=== PATIENT | male | born 1960 | race Caucasian/White ===

== ENCOUNTER 2017-06-22 17:48 | Inpatient (IN) | payer MEDICARE, MEDICAID ==
[~2017-06-22] VITALS: Ht 177.8 cm; Wt 75.3 kg
[2017-06-22] MEDS ORDERED: LISI-661 PO (17:59)
[2017-06-22] MEDS ORDERED: PARO10TA89 PO (17:59)
[2017-06-22] MEDS ORDERED: GABA-529 PO (17:59)
[2017-06-22 18:50] LABS: BASOPHILS % (AUTO) 0.9 % (0.0-2.0); EOSINOPHILS % (AUTO) 0.4 % (1.0-6.0); HEMATOCRIT 33.8 % (41-53); HEMOGLOBIN 11.6 g/dL (13.5-17.5); LYMPHOCYTES # (AUTO) 2.4 K/uL (1.0-4.8); LYMPHOCYTES % (AUTO) 22.4 % (22.0-44.0); MEAN CORPUSCULAR HEMOGLOBIN 29.6 pg (26.0-34.0); MEAN CORPUSCULAR HGB CONC 34.4 G/dL (31.0-37.0); MEAN CORPUSCULAR VOLUME 86 fL (80-100); MONOCYTES # (AUTO) 0.8 K/uL (0.1-1.0); MONOCYTES % (AUTO) 7.7 % (2.0-9.0); NEUTROPHILS # (AUTO) 7.3 K/uL (1.8-7.7); NEUTROPHILS % (AUTO) 68.6 % (40.0-70.0); PLATELET COUNT (AUTO) 316 K/uL (150-450); RED BLOOD CELL COUNT(AUTO) 3.92 MIL/uL (4.50-5.90); RED CELL DISTRIBUTION WIDTH 14.7 % (11.5-14.5)
[2017-06-22 19:05] LABS: ANION GAP 12 mmol/L (8-16); CALCIUM, TOTAL 8.4 mg/dL (8.8-10.5); CARBON DIOXIDE 23 mmol/L (22-29); CHLORIDE 106 mmol/L (98-107); CREATININE 1.01 mg/dL (0.60-1.30); GLOMERULAR FILTR. RATE CALC > 60 mL/min (>60); GLUCOSE,RANDOM 108 mg/dL (70-110); POTASSIUM 3.3 mmol/L (3.5-5.1); SODIUM SERUM 141 mmol/L (136-145); UREA NITROGEN, BLOOD 10 mg/dL (7-18)
[2017-06-22 19:11] LABS: ALANINE AMINOTRANSFERASE 19 U/L (12-78); ALBUMIN 3.2 g/dL (3.4-5.0); ALKALINE PHOSPHATASE 108 U/L (46-116); ASPARTATE AMINOTRANSFERASE 17 U/L (15-37); BILIRUBIN,TOTAL 0.4 mg/dL (0.1-1.0); TOTAL PROTEIN, SERUM 6.7 g/dL (6.4-8.2)
[2017-06-22] MEDS ORDERED: CLOZ100 PO ×2 (19:43)
[2017-06-22] MEDS ORDERED: OMEP20 PO (19:43)
[2017-06-22] MEDS ORDERED: CloZAPine 100 MG TABLET PO ONE (19:45)
[2017-06-22] MEDS ORDERED: LORazepam 2 MG TABLET PO PRN (20:45)
[2017-06-22] MEDS ORDERED: HALOPERIDOL 5 MG TABLET PO PRN (20:45)
[2017-06-22] MEDS ORDERED: ZOLPIDEM TARTRATE 10 MG TABLET PO PRN (20:45)
[2017-06-23 01:20] VITALS: BP 148/89
[2017-06-23 01:28] LABS: CHOL/HDL RATIO 3.2 (4.2-7.3); CHOLESTEROL 136 mg/dL (131-200); FREE T4 (FREE THYROXINE) 1.57 ng/dL (0.76-1.46); HDL CHOLESTEROL 43 mg/dL (40-60); LDL CHOL (CALC.) 67 mg/dL (0-130); THYROID STIMULATING HORMONE 1.95 uIU/mL (0.36-3.74); TRIGLYCERIDES 129 mg/dL (15-150)
[2017-06-23] MEDS ORDERED: PNEUMOCOCCAL VACCINE POLYVALENT 0.5 ML VIAL [PPSV23] IM ONE (03:45)
[2017-06-23] MEDS ORDERED: PETROLATUM,WHITE 71 GM JELLY TP PRN (07:30)
[2017-06-23] MEDS ORDERED: MAG HYDROX/AL HYDROX/SIMETH ES 30 ML SUSPENSION UDCUP PO PRN (07:30)
[2017-06-23] MEDS ORDERED: BACITRACIN 28.4 GM OINTMENT TP PRN (07:30)
[2017-06-23] MEDS ORDERED: CloNIDine HCL 0.1 MG TABLET PO PRN (07:30)
[2017-06-23] MEDS ORDERED: BENZOCAINE/MENTHOL LOZENGE MM PRN (07:30)
[2017-06-23] MEDS ORDERED: ONDANSETRON HCL 4 MG TABLET PO PRN (07:30)
[2017-06-23] MEDS ORDERED: POTASSIUM CHLORIDE 20 MEQ ER TABLET PO ONE (07:30)
[2017-06-23] MEDS ORDERED: MAGNESIUM HYDROXIDE SUSPENSION 30 ML UDCUP PO PRN (07:30)
[2017-06-23] MEDS ORDERED: LOPERAMIDE HCL 2 MG CAPSULE PO PRN (07:30)
[2017-06-23] MEDS ORDERED: ACETAMINOPHEN 325 MG TABLET PO PRN (07:30)
[2017-06-23] MEDS: LISINOPRIL 10 MG TABLET PO SCH (08:23)
[2017-06-23] MEDS: OMEPRAZOLE 20 MG CAPSULE PO SCH (08:23)
[2017-06-23] MEDS: DOCUSATE SODIUM 100 MG CAPSULE PO SCH (08:23)
[2017-06-23] MEDS: GABAPENTIN 100 MG CAPSULE PO SCH ×4 (08:24→20:52)
[2017-06-23 11:00] VITALS: BP 133/79
[2017-06-23] MEDS: PARoxetine HCL 10 MG TABLET PO SCH (12:05)
[2017-06-23 17:00] VITALS: BP 155/82
[2017-06-24] MEDS: OMEPRAZOLE 20 MG CAPSULE PO SCH (08:11)
[2017-06-24] MEDS: GABAPENTIN 100 MG CAPSULE PO SCH ×4 (08:11→20:34)
[2017-06-24] MEDS: PARoxetine HCL 10 MG TABLET PO SCH (08:11)
[2017-06-24] MEDS: DOCUSATE SODIUM 100 MG CAPSULE PO SCH (08:11)
[2017-06-24] MEDS: LISINOPRIL 10 MG TABLET PO SCH (08:12)
[2017-06-24 09:25] VITALS: BP 152/81
[2017-06-24 10:45] VITALS: BP 137/91
[2017-06-24] MEDS: ALBUTEROL SULFATE HFA 90 MCG/PUFF 8 GM INHALER IH PRN (14:37)
[2017-06-24] MEDS: IBUPROFEN 600 MG TABLET PO PRN (14:37)
[2017-06-24] MEDS ORDERED: POTASSIUM CHLORIDE 20 MEQ ER TABLET PO ONE (17:00)
[2017-06-24 17:23] VITALS: BP 144/76
[2017-06-25 07:29] LABS: ANION GAP 9 mmol/L (8-16); CALCIUM, TOTAL 8.3 mg/dL (8.8-10.5); CARBON DIOXIDE 24 mmol/L (22-29); CHLORIDE 109 mmol/L (98-107); CREATININE 0.91 mg/dL (0.60-1.30); GLOMERULAR FILTR. RATE CALC > 60 mL/min (>60); GLUCOSE,RANDOM 100 mg/dL (70-110); SODIUM SERUM 142 mmol/L (136-145); UREA NITROGEN, BLOOD 11 mg/dL (7-18)
[2017-06-25] MEDS: GABAPENTIN 100 MG CAPSULE PO SCH ×4 (08:24→20:29)
[2017-06-25] MEDS: DOCUSATE SODIUM 100 MG CAPSULE PO SCH (08:24)
[2017-06-25] MEDS: OMEPRAZOLE 20 MG CAPSULE PO SCH (08:25)
[2017-06-25] MEDS: LISINOPRIL 10 MG TABLET PO SCH (08:25)
[2017-06-25] MEDS: PARoxetine HCL 10 MG TABLET PO SCH (08:25)
[2017-06-25 08:30] VITALS: BP 137/77
[2017-06-25] MEDS: ALBUTEROL SULFATE HFA 90 MCG/PUFF 8 GM INHALER IH PRN ×2 (12:36→20:37)
[2017-06-25] MEDS ORDERED: LORazepam 2 MG TABLET PO PRN (15:15)
[2017-06-25] MEDS ORDERED: HALOPERIDOL 5 MG TABLET PO PRN (15:15)
[2017-06-25 16:35] VITALS: BP 148/83
[2017-06-25] MEDS: ZOLPIDEM TARTRATE 10 MG TABLET PO PRN (20:29)
[2017-06-26 08:01] VITALS: BP 141/75
[2017-06-26] MEDS: OMEPRAZOLE 20 MG CAPSULE PO SCH (08:35)
[2017-06-26] MEDS: PARoxetine HCL 10 MG TABLET PO SCH (08:35)
[2017-06-26] MEDS: DOCUSATE SODIUM 100 MG CAPSULE PO SCH (08:35)
[2017-06-26] MEDS: GABAPENTIN 100 MG CAPSULE PO SCH ×4 (08:35→19:57)
[2017-06-26] MEDS: LISINOPRIL 10 MG TABLET PO SCH (08:36)
[2017-06-26] MEDS: ALBUTEROL SULFATE HFA 90 MCG/PUFF 8 GM INHALER IH PRN ×2 (09:06→16:19)
[2017-06-26 17:21] VITALS: BP 144/82
[2017-06-26] MEDS: ZOLPIDEM TARTRATE 10 MG TABLET PO PRN (20:23)
[2017-06-27 06:40] LABS: BASOPHILS % (AUTO) 1.7 % (0.0-2.0); EOSINOPHILS % (AUTO) 1.6 % (1.0-6.0); HEMATOCRIT 32.7 % (41-53); HEMOGLOBIN 11.4 g/dL (13.5-17.5); LYMPHOCYTES # (AUTO) 2.1 K/uL (1.0-4.8); LYMPHOCYTES % (AUTO) 37.5 % (22.0-44.0); MEAN CORPUSCULAR HEMOGLOBIN 29.9 pg (26.0-34.0); MEAN CORPUSCULAR HGB CONC 34.8 G/dL (31.0-37.0); MEAN CORPUSCULAR VOLUME 86 fL (80-100); MONOCYTES # (AUTO) 0.6 K/uL (0.1-1.0); NEUTROPHILS # (AUTO) 2.7 K/uL (1.8-7.7); NEUTROPHILS % (AUTO) 48.2 % (40.0-70.0); PLATELET COUNT (AUTO) 234 K/uL (150-450); RED BLOOD CELL COUNT(AUTO) 3.81 MIL/uL (4.50-5.90); RED CELL DISTRIBUTION WIDTH 14.8 % (11.5-14.5)
[2017-06-27] MEDS: DOCUSATE SODIUM 100 MG CAPSULE PO SCH (08:33)
[2017-06-27] MEDS: PARoxetine HCL 10 MG TABLET PO SCH (08:33)
[2017-06-27] MEDS: GABAPENTIN 100 MG CAPSULE PO SCH ×4 (08:33→20:08)
[2017-06-27] MEDS: OMEPRAZOLE 20 MG CAPSULE PO SCH (08:33)
[2017-06-27] MEDS ORDERED: LISINOPRIL 20 MG TABLET PO SCH (09:00)
[2017-06-27] MEDS ORDERED: CloZAPine 25 MG TABLET PO SCH (09:00)
[2017-06-27 10:35] VITALS: BP 108/59
[2017-06-27 17:04] VITALS: BP 135/75
[2017-06-27] MEDS: ALBUTEROL SULFATE HFA 90 MCG/PUFF 8 GM INHALER IH PRN (20:12)
[2017-06-27] MEDS: ZOLPIDEM TARTRATE 10 MG TABLET PO PRN (20:50)
[2017-06-28 08:15] VITALS: BP 102/64
[2017-06-28] MEDS: PARoxetine HCL 10 MG TABLET PO SCH (08:31)
[2017-06-28] MEDS: LISINOPRIL 10 MG TABLET PO SCH (08:31)
[2017-06-28] MEDS: DOCUSATE SODIUM 100 MG CAPSULE PO SCH (08:31)
[2017-06-28] MEDS: GABAPENTIN 100 MG CAPSULE PO SCH ×4 (08:31→20:33)
[2017-06-28] MEDS: OMEPRAZOLE 20 MG CAPSULE PO SCH (08:31)
[2017-06-28] MEDS ORDERED: CloZAPine 25 MG TABLET PO SCH ×2 (09:00→21:00)
[2017-06-28 16:42] VITALS: BP 116/81
[2017-06-29] MEDS: GABAPENTIN 100 MG CAPSULE PO SCH ×4 (08:23→20:17)
[2017-06-29] MEDS: PARoxetine HCL 10 MG TABLET PO SCH (08:23)
[2017-06-29] MEDS: DOCUSATE SODIUM 100 MG CAPSULE PO SCH (08:24)
[2017-06-29] MEDS: OMEPRAZOLE 20 MG CAPSULE PO SCH (08:24)
[2017-06-29] MEDS: CHOLECALCIFEROL (VIT D3) 1,000 UNITS TABLET PO SCH (08:24)
[2017-06-29] MEDS: LISINOPRIL 10 MG TABLET PO SCH (08:34)
[2017-06-29] MEDS ORDERED: CloZAPine 25 MG TABLET PO SCH ×2 (09:00→21:00)
[2017-06-29 09:22] VITALS: BP 109/60
[2017-06-29 16:48] VITALS: BP 101/59
[2017-06-30 08:00] VITALS: BP 110/59
[2017-06-30] MEDS: OMEPRAZOLE 20 MG CAPSULE PO SCH (08:20)
[2017-06-30] MEDS: CloZAPine 25 MG TABLET PO SCH ×2 (08:20→20:26)
[2017-06-30] MEDS: LISINOPRIL 10 MG TABLET PO SCH (08:20)
[2017-06-30] MEDS: DOCUSATE SODIUM 100 MG CAPSULE PO SCH (08:21)
[2017-06-30] MEDS: GABAPENTIN 100 MG CAPSULE PO SCH ×4 (08:21→20:25)
[2017-06-30] MEDS: PARoxetine HCL 10 MG TABLET PO SCH (08:21)
[2017-06-30] MEDS: CHOLECALCIFEROL (VIT D3) 1,000 UNITS TABLET PO SCH (08:21)
[2017-06-30] MEDS ORDERED: FluPHENAZine DECANOATE 25 MG/ML IM SCH ×2 (09:00)
[2017-06-30 16:32] VITALS: BP 101/62
[2017-07-01 08:10] VITALS: BP 111/69
[2017-07-01] MEDS: OMEPRAZOLE 20 MG CAPSULE PO SCH (08:30)
[2017-07-01] MEDS: LISINOPRIL 10 MG TABLET PO SCH (08:30)
[2017-07-01] MEDS: DOCUSATE SODIUM 100 MG CAPSULE PO SCH (08:30)
[2017-07-01] MEDS: GABAPENTIN 100 MG CAPSULE PO SCH ×4 (08:30→20:06)
[2017-07-01] MEDS: CHOLECALCIFEROL (VIT D3) 1,000 UNITS TABLET PO SCH (08:30)
[2017-07-01] MEDS: PARoxetine HCL 10 MG TABLET PO SCH (08:31)
[2017-07-01] MEDS: CloZAPine 25 MG TABLET PO SCH ×2 (08:31→20:07)
[2017-07-01 16:34] VITALS: BP 118/63
[2017-07-02] MEDS ORDERED: CloZAPine 25 MG TABLET PO SCH (09:00)
[2017-07-02] MEDS: DOCUSATE SODIUM 100 MG CAPSULE PO SCH (09:13)
[2017-07-02] MEDS: CHOLECALCIFEROL (VIT D3) 1,000 UNITS TABLET PO SCH (09:13)
[2017-07-02] MEDS: GABAPENTIN 100 MG CAPSULE PO SCH ×4 (09:13→20:13)
[2017-07-02] MEDS: LISINOPRIL 10 MG TABLET PO SCH (09:13)
[2017-07-02] MEDS: OMEPRAZOLE 20 MG CAPSULE PO SCH (09:14)
[2017-07-02] MEDS: PARoxetine HCL 10 MG TABLET PO SCH (09:14)
[2017-07-02 09:36] VITALS: BP 110/69
[2017-07-02] MEDS ORDERED: CloZAPine 100 MG TABLET PO SCH (21:00)
[2017-07-03] MEDS: LISINOPRIL 10 MG TABLET PO SCH (08:21)
[2017-07-03] MEDS: CHOLECALCIFEROL (VIT D3) 1,000 UNITS TABLET PO SCH (08:21)
[2017-07-03] MEDS: GABAPENTIN 100 MG CAPSULE PO SCH ×4 (08:21→20:05)
[2017-07-03] MEDS: OMEPRAZOLE 20 MG CAPSULE PO SCH (08:22)
[2017-07-03] MEDS: PARoxetine HCL 10 MG TABLET PO SCH (08:22)
[2017-07-03] MEDS: DOCUSATE SODIUM 100 MG CAPSULE PO SCH (08:22)
[2017-07-03 08:30] VITALS: BP 130/83
[2017-07-03] MEDS ORDERED: CloZAPine 25 MG TABLET PO SCH (09:00)
[2017-07-03 16:42] VITALS: BP 112/66
[2017-07-03] MEDS ORDERED: CloZAPine 100 MG TABLET PO SCH (21:00)
[2017-07-04 06:38] LABS: BASOPHILS % (AUTO) 0.6 % (0.0-2.0); EOSINOPHILS % (AUTO) 0.8 % (1.0-6.0); HEMATOCRIT 30.9 % (41-53); LYMPHOCYTES # (AUTO) 2.6 K/uL (1.0-4.8); LYMPHOCYTES % (AUTO) 27.7 % (22.0-44.0); MEAN CORPUSCULAR HEMOGLOBIN 30.4 pg (26.0-34.0); MEAN CORPUSCULAR HGB CONC 35.7 G/dL (31.0-37.0); MEAN CORPUSCULAR VOLUME 85 fL (80-100); MONOCYTES # (AUTO) 0.8 K/uL (0.1-1.0); MONOCYTES % (AUTO) 8.9 % (2.0-9.0); NEUTROPHILS # (AUTO) 5.8 K/uL (1.8-7.7); PLATELET COUNT (AUTO) 161 K/uL (150-450); RED BLOOD CELL COUNT(AUTO) 3.63 MIL/uL (4.50-5.90); RED CELL DISTRIBUTION WIDTH 14.4 % (11.5-14.5)
[2017-07-04] MEDS: DOCUSATE SODIUM 100 MG CAPSULE PO SCH (07:58)
[2017-07-04] MEDS: CHOLECALCIFEROL (VIT D3) 1,000 UNITS TABLET PO SCH (07:58)
[2017-07-04] MEDS: OMEPRAZOLE 20 MG CAPSULE PO SCH (07:58)
[2017-07-04] MEDS: GABAPENTIN 100 MG CAPSULE PO SCH ×4 (07:58→20:01)
[2017-07-04] MEDS: PARoxetine HCL 10 MG TABLET PO SCH (07:59)
[2017-07-04] MEDS: LISINOPRIL 10 MG TABLET PO SCH (07:59)
[2017-07-04 08:52] VITALS: BP 115/59
[2017-07-04] MEDS ORDERED: CloZAPine 25 MG TABLET PO SCH (09:00)
[2017-07-04 16:00] VITALS: BP_SYST 134; BP_SYST 137; BP_DIAS 68; BP_DIAS 71
[2017-07-04] MEDS ORDERED: CloZAPine 100 MG TABLET PO SCH (21:00)
[2017-07-05] MEDS: GABAPENTIN 100 MG CAPSULE PO SCH ×4 (08:09→20:20)
[2017-07-05] MEDS: DOCUSATE SODIUM 100 MG CAPSULE PO SCH (08:09)
[2017-07-05] MEDS: CloZAPine 100 MG TABLET PO SCH ×2 (08:09→20:20)
[2017-07-05 08:10] VITALS: BP 106/61
[2017-07-05] MEDS: LISINOPRIL 10 MG TABLET PO SCH (08:10)
[2017-07-05] MEDS: OMEPRAZOLE 20 MG CAPSULE PO SCH (08:10)
[2017-07-05] MEDS: CHOLECALCIFEROL (VIT D3) 1,000 UNITS TABLET PO SCH (08:10)
[2017-07-05] MEDS: PARoxetine HCL 10 MG TABLET PO SCH (09:23)
[2017-07-05 17:00] VITALS: BP 98/56
[2017-07-06] MEDS: LISINOPRIL 10 MG TABLET PO SCH (09:00)
[2017-07-06] MEDS: DOCUSATE SODIUM 100 MG CAPSULE PO SCH (09:07)
[2017-07-06] MEDS: MULTIVITAMINS WITH IRON TABLET PO SCH (09:07)
[2017-07-06] MEDS: PARoxetine HCL 10 MG TABLET PO SCH (09:07)
[2017-07-06] MEDS: CloZAPine 100 MG TABLET PO SCH ×2 (09:07→21:03)
[2017-07-06] MEDS: CHOLECALCIFEROL (VIT D3) 1,000 UNITS TABLET PO SCH (09:07)
[2017-07-06] MEDS: OMEPRAZOLE 20 MG CAPSULE PO SCH (09:08)
[2017-07-06] MEDS: GABAPENTIN 100 MG CAPSULE PO SCH ×4 (09:08→21:03)
[2017-07-06 10:03] VITALS: BP 102/56
[2017-07-06 16:35] VITALS: BP 112/58
[2017-07-07] MEDS: PARoxetine HCL 10 MG TABLET PO SCH (08:13)
[2017-07-07] MEDS: OMEPRAZOLE 20 MG CAPSULE PO SCH (08:13)
[2017-07-07] MEDS: GABAPENTIN 100 MG CAPSULE PO SCH ×4 (08:13→20:07)
[2017-07-07] MEDS: DOCUSATE SODIUM 100 MG CAPSULE PO SCH (08:13)
[2017-07-07] MEDS: CHOLECALCIFEROL (VIT D3) 1,000 UNITS TABLET PO SCH (08:14)
[2017-07-07] MEDS: MULTIVITAMINS WITH IRON TABLET PO SCH (08:14)
[2017-07-07] MEDS ORDERED: CloZAPine 25 MG TABLET PO SCH (09:00)
[2017-07-07] MEDS: LISINOPRIL 10 MG TABLET PO SCH (09:24)
[2017-07-07 10:07] VITALS: BP 114/71
[2017-07-07 16:56] VITALS: BP 108/66
[2017-07-07] MEDS ORDERED: CloZAPine 100 MG TABLET PO SCH (21:00)
[2017-07-08] MEDS: LISINOPRIL 10 MG TABLET PO SCH (08:27)
[2017-07-08] MEDS: OMEPRAZOLE 20 MG CAPSULE PO SCH (08:27)
[2017-07-08] MEDS: PARoxetine HCL 10 MG TABLET PO SCH (08:28)
[2017-07-08] MEDS: MULTIVITAMINS WITH IRON TABLET PO SCH (08:28)
[2017-07-08] MEDS: CHOLECALCIFEROL (VIT D3) 1,000 UNITS TABLET PO SCH (08:28)
[2017-07-08] MEDS: DOCUSATE SODIUM 100 MG CAPSULE PO SCH (08:28)
[2017-07-08] MEDS: GABAPENTIN 100 MG CAPSULE PO SCH ×4 (08:28→20:34)
[2017-07-08] MEDS ORDERED: CloZAPine 25 MG TABLET PO SCH (09:00)
[2017-07-08 09:35] VITALS: BP 112/68
[2017-07-08 16:15] VITALS: BP 109/64
[2017-07-08] MEDS ORDERED: CloZAPine 100 MG TABLET PO SCH (21:00)
[2017-07-09 08:20] VITALS: BP 111/67
[2017-07-09] MEDS: GABAPENTIN 100 MG CAPSULE PO SCH ×4 (08:57→20:14)
[2017-07-09] MEDS: OMEPRAZOLE 20 MG CAPSULE PO SCH (08:57)
[2017-07-09] MEDS: CloZAPine 100 MG TABLET PO SCH ×2 (08:57→20:14)
[2017-07-09] MEDS: DOCUSATE SODIUM 100 MG CAPSULE PO SCH (08:57)
[2017-07-09] MEDS: CHOLECALCIFEROL (VIT D3) 1,000 UNITS TABLET PO SCH (08:57)
[2017-07-09] MEDS: MULTIVITAMINS WITH IRON TABLET PO SCH (08:58)
[2017-07-09] MEDS: LISINOPRIL 10 MG TABLET PO SCH (08:58)
[2017-07-09] MEDS: PARoxetine HCL 10 MG TABLET PO SCH (08:59)
[2017-07-09 16:18] VITALS: BP 114/69
[2017-07-10 08:30] VITALS: BP 113/67
[2017-07-10] MEDS: CloZAPine 100 MG TABLET PO SCH ×2 (08:43→20:13)
[2017-07-10] MEDS: DOCUSATE SODIUM 100 MG CAPSULE PO SCH (08:43)
[2017-07-10] MEDS: OMEPRAZOLE 20 MG CAPSULE PO SCH (08:44)
[2017-07-10] MEDS: CHOLECALCIFEROL (VIT D3) 1,000 UNITS TABLET PO SCH (08:44)
[2017-07-10] MEDS: GABAPENTIN 100 MG CAPSULE PO SCH ×4 (08:44→20:13)
[2017-07-10] MEDS: PARoxetine HCL 10 MG TABLET PO SCH (08:44)
[2017-07-10] MEDS: MULTIVITAMINS WITH IRON TABLET PO SCH (08:45)
[2017-07-10] MEDS: LISINOPRIL 10 MG TABLET PO SCH (08:45)
[2017-07-10] MEDS: IBUPROFEN 600 MG TABLET PO PRN (10:14)
[2017-07-10 18:08] VITALS: BP 92/61
[2017-07-11 06:57] LABS: BASOPHILS % (AUTO) 1.2 % (0.0-2.0); EOSINOPHILS % (AUTO) 2.8 % (1.0-6.0); HEMATOCRIT 30.8 % (41-53); HEMOGLOBIN 10.7 g/dL (13.5-17.5); LYMPHOCYTES # (AUTO) 2.2 K/uL (1.0-4.8); LYMPHOCYTES % (AUTO) 28.8 % (22.0-44.0); MEAN CORPUSCULAR HEMOGLOBIN 29.2 pg (26.0-34.0); MEAN CORPUSCULAR HGB CONC 34.7 G/dL (31.0-37.0); MEAN CORPUSCULAR VOLUME 84 fL (80-100); MONOCYTES # (AUTO) 0.6 K/uL (0.1-1.0); MONOCYTES % (AUTO) 8.4 % (2.0-9.0); NEUTROPHILS # (AUTO) 4.5 K/uL (1.8-7.7); NEUTROPHILS % (AUTO) 58.8 % (40.0-70.0); PLATELET COUNT (AUTO) 271 K/uL (150-450); RED BLOOD CELL COUNT(AUTO) 3.66 MIL/uL (4.50-5.90); RED CELL DISTRIBUTION WIDTH 14.4 % (11.5-14.5)
[2017-07-11] MEDS: LISINOPRIL 10 MG TABLET PO SCH (09:00)
[2017-07-11] MEDS: MULTIVITAMINS WITH IRON TABLET PO SCH (09:30)
[2017-07-11] MEDS: GABAPENTIN 100 MG CAPSULE PO SCH ×4 (09:30→20:11)
[2017-07-11] MEDS: CloZAPine 100 MG TABLET PO SCH ×2 (09:31→20:09)
[2017-07-11] MEDS: CHOLECALCIFEROL (VIT D3) 1,000 UNITS TABLET PO SCH (09:31)
[2017-07-11] MEDS: OMEPRAZOLE 20 MG CAPSULE PO SCH (09:31)
[2017-07-11] MEDS: PARoxetine HCL 10 MG TABLET PO SCH (09:31)
[2017-07-11] MEDS: DOCUSATE SODIUM 100 MG CAPSULE PO SCH (09:31)
[2017-07-11 09:32] VITALS: BP 120/60
[2017-07-11] MEDS: IBUPROFEN 600 MG TABLET PO PRN (09:32)
[2017-07-11 10:55] VITALS: BP 115/56
[2017-07-11 17:34] VITALS: BP 118/69
[2017-07-12] MEDS: LISINOPRIL 10 MG TABLET PO SCH (08:23)
[2017-07-12] MEDS: PARoxetine HCL 10 MG TABLET PO SCH (08:23)
[2017-07-12] MEDS: DOCUSATE SODIUM 100 MG CAPSULE PO SCH (08:23)
[2017-07-12] MEDS: CHOLECALCIFEROL (VIT D3) 1,000 UNITS TABLET PO SCH (08:23)
[2017-07-12] MEDS: GABAPENTIN 100 MG CAPSULE PO SCH ×2 (08:23→11:45)
[2017-07-12] MEDS: OMEPRAZOLE 20 MG CAPSULE PO SCH (08:23)
[2017-07-12] MEDS: MULTIVITAMINS WITH IRON TABLET PO SCH (08:24)
[2017-07-12] MEDS: CloZAPine 100 MG TABLET PO SCH (08:24)
[2017-07-12 08:57] VITALS: BP 118/73
[2017-07-12] MEDS ORDERED: PARO10TA71 PO (09:52)
[2017-07-12] MEDS ORDERED: CLOZ100 PO ×2 (09:52)
[2017-07-12] MEDS ORDERED: VITAD1000 PO (10:16)
[2017-07-12] MEDS ORDERED: DSS100 PO (10:16)
== END 2017-07-12 12:30 | disposition home or self-care (01) | DRG 885 ==
LOC: EMS 17:49 → 3EX 22:24
DX: F20.0 Paranoid schizophrenia (principal); E83.51 Hypocalcemia; E87.6 Hypokalemia; F32.9 Major depressive disorder, single episode, unspecified; G40.909 Epilepsy, unspecified, not intractable, without status epilepticus; D64.9 Anemia, unspecified; G47.00 Insomnia, unspecified; I10 Essential (primary) hypertension; Z79.899 Other long term (current) drug therapy; Z87.01 Personal history of pneumonia (recurrent); Z91.5 Personal history of self-harm; Z28.21 Immunization not carried out because of patient refusal
CPT/HCPCS: 82306; 84132; 84439; 84443; 87081; 90471; 99285; G0480; J3535

== ENCOUNTER 2018-04-13 17:21 | Inpatient (IN) | payer MEDICARE, MEDICAID ==
[~2018-04-13] VITALS: Ht 177.8 cm; Wt 73.9 kg
[~2018-04-13 17:21] MED LIST: CLOZ100 PO; DSS100 PO; GABA-529 PO; LISI-661 PO; OMEP20 PO; PARO10TA71 PO; PARO10TA89 PO; VITAD1000 PO
[2018-04-13 18:20] LABS: BASOPHILS % (AUTO) 0.7 % (0.0-2.0); HEMATOCRIT 45.6 % (41-53); HEMOGLOBIN 15.4 g/dL (13.5-17.5); LYMPHOCYTES # (AUTO) 3.2 K/uL (1.0-4.8); LYMPHOCYTES % (AUTO) 26.9 % (22.0-44.0); MEAN CORPUSCULAR HEMOGLOBIN 30.6 pg (26.0-34.0); MEAN CORPUSCULAR HGB CONC 33.7 G/dL (31.0-37.0); MEAN CORPUSCULAR VOLUME 91 fL (80-100); MONOCYTES # (AUTO) 0.8 K/uL (0.1-1.0); MONOCYTES % (AUTO) 7.1 % (2.0-9.0); NEUTROPHILS # (AUTO) 7.5 K/uL (1.8-7.7); NEUTROPHILS % (AUTO) 63.3 % (40.0-70.0); PLATELET COUNT (AUTO) 218 K/uL (150-450); RED BLOOD CELL COUNT(AUTO) 5.03 MIL/uL (4.50-5.90); RED CELL DISTRIBUTION WIDTH 15.1 % (11.5-14.5)
[2018-04-13 18:28] LABS: ANION GAP 8 mmol/L (8-16); CARBON DIOXIDE 28 mmol/L (22-29); CHLORIDE 108 mmol/L (98-107); CREATININE 1.23 mg/dL (0.60-1.30); GLOMERULAR FILTR. RATE CALC > 60 mL/min (>60); GLUCOSE,RANDOM 102 mg/dL (70-110); POTASSIUM 4.1 mmol/L (3.5-5.1); SODIUM SERUM 144 mmol/L (136-145); UREA NITROGEN, BLOOD 15 mg/dL (7-18)
[2018-04-13 18:28] LABS: AMPHET/METH SCREEN,URINE NEGATIVE (NEGATIVE); BARBITURATE SCREEN, URINE NEGATIVE (NEGATIVE); BENZODIAZEPINES SCREEN,URINE NEGATIVE (NEGATIVE); CANNABINOID SCREEN,URINE POSITIVE (NEGATIVE); COCAINE SCREEN,URINE NEGATIVE (NEGATIVE); METHADONE SCREEN, URINE NEGATIVE (NEGATIVE); OPIATE SCREEN,URINE NEGATIVE (NEGATIVE)
[2018-04-13 18:29] LABS: PHENCYCLIDINE SCREEN,URINE NEGATIVE (NEGATIVE)
[2018-04-13 18:34] LABS: ALANINE AMINOTRANSFERASE 12 U/L (12-78); ALKALINE PHOSPHATASE 106 U/L (46-116); ASPARTATE AMINOTRANSFERASE 13 U/L (15-37); BILIRUBIN,TOTAL 0.4 mg/dL (0.1-1.0)
[2018-04-13] MEDS ORDERED: HALOPERIDOL 5 MG TABLET PO PRN (23:00)
[2018-04-13] MEDS ORDERED: ZOLPIDEM TARTRATE 10 MG TABLET PO PRN (23:00)
[2018-04-14 02:27] VITALS: BP 142/72
[2018-04-14] MEDS ORDERED: PNEUMOCOCCAL VACCINE POLYVALENT 0.5 ML VIAL [PPSV23] IM ONE (04:00)
[2018-04-14 08:27] VITALS: BP 113/94
[2018-04-14 08:50] LABS: HEMOGLOBIN A1C 5.5 % (4.5-6.2)
[2018-04-14 09:18] LABS: CHOL/HDL RATIO 3.3 (4.2-7.3); THYROID STIMULATING HORMONE 1.76 uIU/mL (0.36-3.74)
[2018-04-14] MEDS: NICOTINE 21 MG/24 HOUR PATCH TD SCH (10:10)
[2018-04-14] MEDS: CloZAPine 100 MG TABLET PO SCH ×2 (10:10→20:06)
[2018-04-14] MEDS: BACITRACIN 28.4 GM OINTMENT TP SCH ×2 (10:10→17:43)
[2018-04-14 16:08] VITALS: BP 134/95
[2018-04-14] MEDS: LORazepam 2 MG TABLET PO PRN (19:33)
[2018-04-14] MEDS ORDERED: CloNIDine HCL 0.1 MG TABLET PO PRN (21:00)
[2018-04-14] MEDS ORDERED: ALBUTEROL SULFATE HFA 90 MCG/PUFF 8 GM INHALER IH PRN (21:00)
[2018-04-14] MEDS ORDERED: LOPERAMIDE HCL 2 MG CAPSULE PO PRN (21:00)
[2018-04-14] MEDS ORDERED: ONDANSETRON HCL 4 MG TABLET PO PRN (21:00)
[2018-04-14] MEDS ORDERED: IBUPROFEN 600 MG TABLET PO PRN (21:00)
[2018-04-14] MEDS ORDERED: MAGNESIUM HYDROXIDE SUSPENSION 30 ML UDCUP PO PRN (21:00)
[2018-04-14] MEDS ORDERED: PETROLATUM,WHITE 71 GM JELLY TP PRN (21:00)
[2018-04-14] MEDS ORDERED: BACITRACIN 28.4 GM OINTMENT TP PRN (21:00)
[2018-04-14] MEDS ORDERED: MAG HYDROX/AL HYDROX/SIMETH ES 30 ML SUSPENSION UDCUP PO PRN (21:00)
[2018-04-15 07:03] VITALS: BP 129/78
[2018-04-15 08:05] VITALS: BP 124/62
[2018-04-15] MEDS: LISINOPRIL 10 MG TABLET PO SCH (09:06)
[2018-04-15] MEDS: DOCUSATE SODIUM 100 MG CAPSULE PO SCH (09:06)
[2018-04-15] MEDS: CHOLECALCIFEROL (VIT D3) 1,000 UNITS TABLET PO SCH (09:06)
[2018-04-15] MEDS: NICOTINE 21 MG/24 HOUR PATCH TD SCH (09:07)
[2018-04-15] MEDS: CloZAPine 100 MG TABLET PO SCH ×2 (09:07→20:02)
[2018-04-15] MEDS: BACITRACIN 28.4 GM OINTMENT TP SCH ×2 (09:07→16:24)
[2018-04-15] MEDS: OMEPRAZOLE 20 MG CAPSULE PO SCH (09:07)
[2018-04-15] MEDS: GABAPENTIN 100 MG CAPSULE PO SCH ×3 (12:47→20:02)
[2018-04-15 16:10] VITALS: BP 113/70
[2018-04-16 00:18] VITALS: BP 101/60
[2018-04-16 08:40] VITALS: BP 110/67
[2018-04-16] MEDS: CHOLECALCIFEROL (VIT D3) 1,000 UNITS TABLET PO SCH (08:41)
[2018-04-16] MEDS: OMEPRAZOLE 20 MG CAPSULE PO SCH (08:41)
[2018-04-16] MEDS: DOCUSATE SODIUM 100 MG CAPSULE PO SCH (08:41)
[2018-04-16] MEDS: GABAPENTIN 100 MG CAPSULE PO SCH ×4 (08:41→20:13)
[2018-04-16] MEDS: LISINOPRIL 10 MG TABLET PO SCH (08:41)
[2018-04-16] MEDS: CloZAPine 100 MG TABLET PO SCH ×2 (08:41→20:13)
[2018-04-16] MEDS: NICOTINE 21 MG/24 HOUR PATCH TD SCH (08:42)
[2018-04-16] MEDS: BACITRACIN 28.4 GM OINTMENT TP SCH ×2 (08:42→16:18)
[2018-04-16 16:12] VITALS: BP 109/69
[2018-04-16] MEDS: LORazepam 2 MG TABLET PO PRN (20:13)
[2018-04-17 06:12] VITALS: BP 100/61
[2018-04-17 08:17] VITALS: BP 120/80
[2018-04-17 08:29] LABS: MEAN CORPUSCULAR HEMOGLOBIN 30.9 pg (26.0-34.0); MEAN CORPUSCULAR HGB CONC 34.7 G/dL (31.0-37.0)
[2018-04-17 08:34] LABS: EOSINOPHILS % (AUTO) 3.3 % (1.0-6.0); HEMATOCRIT 40.9 % (41-53); HEMOGLOBIN 14.2 g/dL (13.5-17.5); LYMPHOCYTES # (AUTO) 2.8 K/uL (1.0-4.8); LYMPHOCYTES % (AUTO) 26.3 % (22.0-44.0); MEAN CORPUSCULAR VOLUME 89 fL (80-100); MONOCYTES # (AUTO) 0.8 K/uL (0.1-1.0); MONOCYTES % (AUTO) 7.3 % (2.0-9.0); NEUTROPHILS # (AUTO) 6.7 K/uL (1.8-7.7); NEUTROPHILS % (AUTO) 62.1 % (40.0-70.0); PLATELET COUNT (AUTO) 182 K/uL (150-450); RED CELL DISTRIBUTION WIDTH 14.7 % (11.5-14.5)
[2018-04-17 08:44] LABS: CALCIUM, TOTAL 8.9 mg/dL (8.8-10.5); CREATININE 1.25 mg/dL (0.60-1.30); MAGNESIUM 1.9 mg/dL (1.80-2.40); POTASSIUM 4.4 mmol/L (3.5-5.1)
[2018-04-17] MEDS: CloZAPine 100 MG TABLET PO SCH ×2 (08:53→20:26)
[2018-04-17] MEDS: DOCUSATE SODIUM 100 MG CAPSULE PO SCH (08:53)
[2018-04-17] MEDS: OMEPRAZOLE 20 MG CAPSULE PO SCH (08:53)
[2018-04-17] MEDS: CHOLECALCIFEROL (VIT D3) 1,000 UNITS TABLET PO SCH (08:53)
[2018-04-17] MEDS: LISINOPRIL 10 MG TABLET PO SCH (08:53)
[2018-04-17] MEDS: GABAPENTIN 100 MG CAPSULE PO SCH ×4 (08:53→20:26)
[2018-04-17] MEDS: NICOTINE 21 MG/24 HOUR PATCH TD SCH (08:54)
[2018-04-17] MEDS: BACITRACIN 28.4 GM OINTMENT TP SCH ×2 (08:55→16:53)
[2018-04-17 16:15] VITALS: BP 109/67
[2018-04-18 06:37] VITALS: BP 108/74
[2018-04-18 08:30] VITALS: BP 116/73
[2018-04-18] MEDS: OMEPRAZOLE 20 MG CAPSULE PO SCH (08:32)
[2018-04-18] MEDS: CloZAPine 100 MG TABLET PO SCH ×2 (08:32→20:13)
[2018-04-18] MEDS: LISINOPRIL 10 MG TABLET PO SCH (08:32)
[2018-04-18] MEDS: GABAPENTIN 100 MG CAPSULE PO SCH ×4 (08:32→20:13)
[2018-04-18] MEDS: DOCUSATE SODIUM 100 MG CAPSULE PO SCH (08:32)
[2018-04-18] MEDS: CHOLECALCIFEROL (VIT D3) 1,000 UNITS TABLET PO SCH (08:32)
[2018-04-18] MEDS: BACITRACIN 28.4 GM OINTMENT TP SCH ×2 (08:46→16:17)
[2018-04-18] MEDS: NICOTINE 21 MG/24 HOUR PATCH TD SCH (08:46)
[2018-04-18 09:56] VITALS: BP 112/76
[2018-04-18] MEDS: ACETAMINOPHEN 325 MG TABLET PO PRN (09:56)
[2018-04-18 16:08] VITALS: BP 127/66
[2018-04-18] MEDS: LORazepam 2 MG TABLET PO PRN (18:28)
[2018-04-19 00:43] VITALS: BP 108/62
[2018-04-19 08:41] VITALS: BP 110/75
[2018-04-19] MEDS: CloZAPine 100 MG TABLET PO SCH ×2 (08:45→21:30)
[2018-04-19] MEDS: GABAPENTIN 100 MG CAPSULE PO SCH ×4 (08:45→21:30)
[2018-04-19] MEDS: LISINOPRIL 10 MG TABLET PO SCH (08:45)
[2018-04-19] MEDS: DOCUSATE SODIUM 100 MG CAPSULE PO SCH (08:45)
[2018-04-19] MEDS: NICOTINE 21 MG/24 HOUR PATCH TD SCH (08:45)
[2018-04-19] MEDS: BACITRACIN 28.4 GM OINTMENT TP SCH ×2 (08:45→16:34)
[2018-04-19] MEDS: CHOLECALCIFEROL (VIT D3) 1,000 UNITS TABLET PO SCH (08:45)
[2018-04-19] MEDS: OMEPRAZOLE 20 MG CAPSULE PO SCH (08:45)
[2018-04-19 16:08] VITALS: BP 109/62
[2018-04-20 06:08] VITALS: BP 119/67
[2018-04-20 08:10] VITALS: BP 115/57
[2018-04-20] MEDS: CHOLECALCIFEROL (VIT D3) 1,000 UNITS TABLET PO SCH (08:49)
[2018-04-20] MEDS: DOCUSATE SODIUM 100 MG CAPSULE PO SCH (08:49)
[2018-04-20] MEDS: GABAPENTIN 100 MG CAPSULE PO SCH ×4 (08:49→21:02)
[2018-04-20 08:50] VITALS: BP 118/66
[2018-04-20] MEDS: CloZAPine 100 MG TABLET PO SCH ×2 (08:50→21:02)
[2018-04-20] MEDS: LISINOPRIL 10 MG TABLET PO SCH (08:50)
[2018-04-20] MEDS: OMEPRAZOLE 20 MG CAPSULE PO SCH (08:50)
[2018-04-20] MEDS: NICOTINE 21 MG/24 HOUR PATCH TD SCH (08:51)
[2018-04-20] MEDS: BACITRACIN 28.4 GM OINTMENT TP SCH ×2 (08:52→16:14)
[2018-04-20 16:18] VITALS: BP 112/70
[2018-04-20] MEDS ORDERED: MAGNESIUM CITRATE 300 ML ORAL SOLUTION PO ONE (19:45)
[2018-04-20] MEDS: LORazepam 2 MG TABLET PO PRN (21:01)
[2018-04-21 06:18] VITALS: BP 100/60
[2018-04-21 08:13] VITALS: BP 118/69
[2018-04-21] MEDS: LISINOPRIL 10 MG TABLET PO SCH (08:40)
[2018-04-21] MEDS: OMEPRAZOLE 20 MG CAPSULE PO SCH (08:40)
[2018-04-21] MEDS: CloZAPine 100 MG TABLET PO SCH ×2 (08:41→21:14)
[2018-04-21] MEDS: GABAPENTIN 100 MG CAPSULE PO SCH ×4 (08:41→21:14)
[2018-04-21] MEDS: DOCUSATE SODIUM 100 MG CAPSULE PO SCH (08:41)
[2018-04-21] MEDS: NICOTINE 21 MG/24 HOUR PATCH TD SCH (08:41)
[2018-04-21] MEDS: CHOLECALCIFEROL (VIT D3) 1,000 UNITS TABLET PO SCH (08:41)
[2018-04-21] MEDS: BACITRACIN 28.4 GM OINTMENT TP SCH ×2 (08:43→16:19)
[2018-04-21 13:31] VITALS: BP 114/72
[2018-04-21] MEDS: ACETAMINOPHEN 325 MG TABLET PO PRN (13:31)
[2018-04-21 16:06] VITALS: BP 104/61
[2018-04-22 01:00] VITALS: BP 103/64
[2018-04-22 08:10] VITALS: BP 110/66
[2018-04-22] MEDS: CloZAPine 100 MG TABLET PO SCH ×2 (08:14→20:24)
[2018-04-22] MEDS: CHOLECALCIFEROL (VIT D3) 1,000 UNITS TABLET PO SCH (08:14)
[2018-04-22] MEDS: GABAPENTIN 100 MG CAPSULE PO SCH ×4 (08:14→20:24)
[2018-04-22] MEDS: LISINOPRIL 10 MG TABLET PO SCH (08:14)
[2018-04-22] MEDS: DOCUSATE SODIUM 100 MG CAPSULE PO SCH (08:14)
[2018-04-22] MEDS: OMEPRAZOLE 20 MG CAPSULE PO SCH (08:14)
[2018-04-22] MEDS: BACITRACIN 28.4 GM OINTMENT TP SCH ×2 (08:16→16:26)
[2018-04-22] MEDS: NICOTINE 21 MG/24 HOUR PATCH TD SCH (08:20)
[2018-04-22 18:02] VITALS: BP 105/62
[2018-04-23 06:48] VITALS: BP 110/68
[2018-04-23 08:36] VITALS: BP 105/60
[2018-04-23 08:55] VITALS: BP 112/67
[2018-04-23] MEDS: LISINOPRIL 10 MG TABLET PO SCH (08:58)
[2018-04-23] MEDS: CloZAPine 100 MG TABLET PO SCH ×2 (08:58→20:15)
[2018-04-23] MEDS: DOCUSATE SODIUM 100 MG CAPSULE PO SCH (08:58)
[2018-04-23] MEDS: GABAPENTIN 100 MG CAPSULE PO SCH ×4 (08:58→20:15)
[2018-04-23] MEDS: OMEPRAZOLE 20 MG CAPSULE PO SCH (08:58)
[2018-04-23] MEDS: CHOLECALCIFEROL (VIT D3) 1,000 UNITS TABLET PO SCH (08:58)
[2018-04-23] MEDS: NICOTINE 21 MG/24 HOUR PATCH TD SCH (09:00)
[2018-04-23] MEDS: BACITRACIN 28.4 GM OINTMENT TP SCH ×2 (09:01→16:57)
[2018-04-23] MEDS: NALTREXONE HCL 50 MG TABLET PO SCH (09:51)
[2018-04-23 16:11] VITALS: BP 129/66
[2018-04-24 00:20] VITALS: BP 122/72
[2018-04-24 08:29] VITALS: BP 135/83
[2018-04-24] MEDS: NALTREXONE HCL 50 MG TABLET PO SCH (09:00)
[2018-04-24] MEDS: NICOTINE 21 MG/24 HOUR PATCH TD SCH (09:00)
[2018-04-24] MEDS: LISINOPRIL 10 MG TABLET PO SCH (09:14)
[2018-04-24] MEDS: GABAPENTIN 100 MG CAPSULE PO SCH ×4 (09:14→20:29)
[2018-04-24] MEDS: CHOLECALCIFEROL (VIT D3) 1,000 UNITS TABLET PO SCH (09:14)
[2018-04-24] MEDS: OMEPRAZOLE 20 MG CAPSULE PO SCH (09:14)
[2018-04-24] MEDS: DOCUSATE SODIUM 100 MG CAPSULE PO SCH (09:14)
[2018-04-24] MEDS: CloZAPine 100 MG TABLET PO SCH ×2 (09:14→20:29)
[2018-04-24 09:17] LABS: BASOPHILS % (AUTO) 0.5 % (0.0-2.0); EOSINOPHILS % (AUTO) 1.6 % (1.0-6.0); HEMATOCRIT 40.9 % (41-53); HEMOGLOBIN 13.7 g/dL (13.5-17.5); LYMPHOCYTES # (AUTO) 1.4 K/uL (1.0-4.8); LYMPHOCYTES % (AUTO) 8.8 % (22.0-44.0); MEAN CORPUSCULAR HEMOGLOBIN 29.7 pg (26.0-34.0); MEAN CORPUSCULAR HGB CONC 33.4 G/dL (31.0-37.0); MEAN CORPUSCULAR VOLUME 89 fL (80-100); MONOCYTES # (AUTO) 1.3 K/uL (0.1-1.0); MONOCYTES % (AUTO) 7.7 % (2.0-9.0); NEUTROPHILS # (AUTO) 13.3 K/uL (1.8-7.7); NEUTROPHILS % (AUTO) 81.4 % (40.0-70.0); PLATELET COUNT (AUTO) 244 K/uL (150-450); RED BLOOD CELL COUNT(AUTO) 4.61 MIL/uL (4.50-5.90); RED CELL DISTRIBUTION WIDTH 14.1 % (11.5-14.5)
[2018-04-24] MEDS: BACITRACIN 28.4 GM OINTMENT TP SCH ×2 (09:17→16:43)
[2018-04-24 16:03] VITALS: BP 102/67
[2018-04-24] MEDS: LORazepam 2 MG TABLET PO PRN (20:03)
[2018-04-25 01:00] VITALS: BP 128/80
[2018-04-25 08:08] VITALS: BP 110/68
[2018-04-25] MEDS: CloZAPine 100 MG TABLET PO SCH ×2 (08:34→20:02)
[2018-04-25] MEDS: DOCUSATE SODIUM 100 MG CAPSULE PO SCH (08:34)
[2018-04-25] MEDS: GABAPENTIN 100 MG CAPSULE PO SCH ×4 (08:34→20:02)
[2018-04-25] MEDS: CHOLECALCIFEROL (VIT D3) 1,000 UNITS TABLET PO SCH (08:34)
[2018-04-25] MEDS: NALTREXONE HCL 50 MG TABLET PO SCH ×3 (08:34→09:45)
[2018-04-25] MEDS: OMEPRAZOLE 20 MG CAPSULE PO SCH (08:34)
[2018-04-25] MEDS: LISINOPRIL 10 MG TABLET PO SCH (08:34)
[2018-04-25] MEDS: BACITRACIN 28.4 GM OINTMENT TP SCH (08:42)
[2018-04-25] MEDS: NICOTINE 21 MG/24 HOUR PATCH TD SCH (08:42)
[2018-04-25 09:52] LABS: APPEARANCE,URINE CLEAR (CLEAR); BILIRUBIN,URINE NEGATIVE (NEGATIVE); GLUCOSE, URINE (UA) NEGATIVE (NEGATIVE); KETONES,URINE NEGATIVE (NEGATIVE); LEUKOCYTE ESTERASE ,URINE NEGATIVE (NEGATIVE); NITRATE,URINE NEGATIVE (NEGATIVE); OCCULT BLOOD,URINE NEGATIVE (NEGATIVE); PROTEIN,URINE NEGATIVE (NEGATIVE)
[2018-04-25] MEDS ORDERED: NICOTINE 21 MG/24 HOUR PATCH TD PRN (10:30)
[2018-04-25 16:09] VITALS: BP 102/67
[2018-04-26 06:35] VITALS: BP 110/68
[2018-04-26 08:10] VITALS: BP 112/64
[2018-04-26] MEDS: CHOLECALCIFEROL (VIT D3) 1,000 UNITS TABLET PO SCH (08:14)
[2018-04-26] MEDS: CloZAPine 100 MG TABLET PO SCH ×2 (08:14→20:35)
[2018-04-26] MEDS: DOCUSATE SODIUM 100 MG CAPSULE PO SCH (08:14)
[2018-04-26] MEDS: GABAPENTIN 100 MG CAPSULE PO SCH ×4 (08:14→20:35)
[2018-04-26] MEDS: LISINOPRIL 10 MG TABLET PO SCH (08:14)
[2018-04-26] MEDS: NALTREXONE HCL 50 MG TABLET PO SCH (08:14)
[2018-04-26] MEDS: OMEPRAZOLE 20 MG CAPSULE PO SCH (08:14)
[2018-04-26 08:20] VITALS: BP 108/64
[2018-04-26 08:49] LABS: BAND NEUTROPHILS % (MANUAL) 0 % (0-5)
[2018-04-26 08:52] LABS: HEMATOCRIT 38.7 % (41-53); HEMOGLOBIN 12.8 g/dL (13.5-17.5); MEAN CORPUSCULAR HEMOGLOBIN 30.1 pg (26.0-34.0); MEAN CORPUSCULAR HGB CONC 33.2 G/dL (31.0-37.0); MEAN CORPUSCULAR VOLUME 91 fL (80-100); PLATELET COUNT (AUTO) 268 K/uL (150-450); RED BLOOD CELL COUNT(AUTO) 4.27 MIL/uL (4.50-5.90)
[2018-04-26 09:28] LABS: ANION GAP 6 mmol/L (8-16); CARBON DIOXIDE 30 mmol/L (22-29); CHLORIDE 102 mmol/L (98-107); GLOMERULAR FILTR. RATE CALC > 60 mL/min (>60); GLUCOSE,RANDOM 107 mg/dL (70-110); PHOSPHORUS 3.5 mg/dL (2.5-4.9); POTASSIUM 4.9 mmol/L (3.5-5.1); SODIUM SERUM 138 mmol/L (136-145); UREA NITROGEN, BLOOD 19 mg/dL (7-18)
[2018-04-26 10:11] LABS: EOSINOPHILS % (MANUAL) 3 % (1-6); LYMPHOCYTES % (MANUAL) 21 % (22-44); MONOCYTES % (MANUAL) 9 % (2-9); SEGMENTED NEUTROPHILS % 67 % (40-70)
[2018-04-26] MEDS: BENZOCAINE/MENTHOL LOZENGE MM PRN ×2 (12:44→19:02)
[2018-04-26 16:18] VITALS: BP 101/60
[2018-04-27 02:04] VITALS: BP 102/63
[2018-04-27] MEDS: LISINOPRIL 10 MG TABLET PO SCH (08:40)
[2018-04-27] MEDS: GABAPENTIN 100 MG CAPSULE PO SCH ×4 (08:40→21:00)
[2018-04-27] MEDS: OMEPRAZOLE 20 MG CAPSULE PO SCH (08:40)
[2018-04-27] MEDS: DOCUSATE SODIUM 100 MG CAPSULE PO SCH (08:40)
[2018-04-27] MEDS: CHOLECALCIFEROL (VIT D3) 1,000 UNITS TABLET PO SCH (08:40)
[2018-04-27] MEDS: CloZAPine 100 MG TABLET PO SCH ×2 (08:40→21:00)
[2018-04-27] MEDS: NALTREXONE HCL 50 MG TABLET PO SCH (08:40)
[2018-04-27 08:45] VITALS: BP 114/62
[2018-04-27] MEDS: BENZOCAINE/MENTHOL LOZENGE MM PRN (10:05)
[2018-04-27 16:06] VITALS: BP 100/68
[2018-04-28 04:18] VITALS: BP 126/75
[2018-04-28] MEDS: BENZOCAINE/MENTHOL LOZENGE MM PRN ×2 (05:20→17:57)
[2018-04-28 08:15] VITALS: BP 112/65
[2018-04-28] MEDS: DOCUSATE SODIUM 100 MG CAPSULE PO SCH (08:15)
[2018-04-28] MEDS: LISINOPRIL 10 MG TABLET PO SCH (08:15)
[2018-04-28] MEDS: OMEPRAZOLE 20 MG CAPSULE PO SCH (08:16)
[2018-04-28] MEDS: CloZAPine 100 MG TABLET PO SCH ×2 (08:16→21:35)
[2018-04-28] MEDS: NALTREXONE HCL 50 MG TABLET PO SCH (08:16)
[2018-04-28] MEDS: GABAPENTIN 100 MG CAPSULE PO SCH ×4 (08:16→21:35)
[2018-04-28] MEDS: CHOLECALCIFEROL (VIT D3) 1,000 UNITS TABLET PO SCH (08:16)
[2018-04-28] MEDS: LEVOFLOXACIN 250 MG TABLET PO SCH (12:03)
[2018-04-28 16:50] VITALS: BP 115/66
[2018-04-29 06:04] VITALS: BP 101/70
[2018-04-29] MEDS: BENZOCAINE/MENTHOL LOZENGE MM PRN ×2 (06:10→14:56)
[2018-04-29 08:45] VITALS: BP 104/70
[2018-04-29] MEDS: GABAPENTIN 100 MG CAPSULE PO SCH ×4 (08:48→20:42)
[2018-04-29] MEDS: CloZAPine 100 MG TABLET PO SCH ×2 (08:48→20:42)
[2018-04-29] MEDS: CHOLECALCIFEROL (VIT D3) 1,000 UNITS TABLET PO SCH (08:48)
[2018-04-29] MEDS: NALTREXONE HCL 50 MG TABLET PO SCH (08:48)
[2018-04-29] MEDS: DOCUSATE SODIUM 100 MG CAPSULE PO SCH (08:48)
[2018-04-29] MEDS: LEVOFLOXACIN 250 MG TABLET PO SCH (08:49)
[2018-04-29] MEDS: LISINOPRIL 10 MG TABLET PO SCH (08:57)
[2018-04-29] MEDS: OMEPRAZOLE 20 MG CAPSULE PO SCH (10:51)
[2018-04-29 16:08] VITALS: BP 112/69
[2018-04-29] MEDS: ACETAMINOPHEN 325 MG TABLET PO PRN (19:33)
[2018-04-30 06:00] VITALS: BP 107/58
[2018-04-30 08:00] VITALS: BP 115/76
[2018-04-30] MEDS: LEVOFLOXACIN 250 MG TABLET PO SCH (08:45)
[2018-04-30] MEDS: OMEPRAZOLE 20 MG CAPSULE PO SCH (10:03)
[2018-04-30] MEDS: DOCUSATE SODIUM 100 MG CAPSULE PO SCH (10:04)
[2018-04-30] MEDS: LISINOPRIL 20 MG TABLET PO SCH (10:04)
[2018-04-30] MEDS: CHOLECALCIFEROL (VIT D3) 1,000 UNITS TABLET PO SCH (10:04)
[2018-04-30] MEDS: CloZAPine 100 MG TABLET PO SCH ×2 (10:04→20:14)
[2018-04-30] MEDS: GABAPENTIN 100 MG CAPSULE PO SCH ×4 (10:04→20:15)
[2018-04-30] MEDS: NALTREXONE HCL 50 MG TABLET PO SCH (10:04)
[2018-04-30 16:38] VITALS: BP 94/68
[2018-05-01 07:19] VITALS: BP 110/77
[2018-05-01 07:39] LABS: BASOPHILS % (AUTO) 1.4 % (0.0-2.0); EOSINOPHILS % (AUTO) 3.9 % (1.0-6.0); HEMATOCRIT 39.3 % (41-53); HEMOGLOBIN 13.3 g/dL (13.5-17.5); LYMPHOCYTES # (AUTO) 2.9 K/uL (1.0-4.8); LYMPHOCYTES % (AUTO) 32.7 % (22.0-44.0); MEAN CORPUSCULAR HEMOGLOBIN 30.4 pg (26.0-34.0); MEAN CORPUSCULAR HGB CONC 33.7 G/dL (31.0-37.0); MEAN CORPUSCULAR VOLUME 90 fL (80-100); MONOCYTES # (AUTO) 0.9 K/uL (0.1-1.0); MONOCYTES % (AUTO) 9.6 % (2.0-9.0); NEUTROPHILS # (AUTO) 4.7 K/uL (1.8-7.7); NEUTROPHILS % (AUTO) 52.4 % (40.0-70.0); PLATELET COUNT (AUTO) 295 K/uL (150-450); RED BLOOD CELL COUNT(AUTO) 4.37 MIL/uL (4.50-5.90); RED CELL DISTRIBUTION WIDTH 13.4 % (11.5-14.5)
[2018-05-01 08:07] LABS: BILIRUBIN,TOTAL 0.3 mg/dL (0.1-1.0); CALCIUM, TOTAL 8.9 mg/dL (8.8-10.5); CREATININE 1.24 mg/dL (0.60-1.30); MAGNESIUM 1.9 mg/dL (1.80-2.40); PHOSPHORUS 4.1 mg/dL (2.5-4.9); POTASSIUM 4.7 mmol/L (3.5-5.1); TOTAL PROTEIN, SERUM 5.9 g/dL (6.4-8.2)
[2018-05-01 08:23] VITALS: BP 104/65
[2018-05-01] MEDS: LEVOFLOXACIN 250 MG TABLET PO SCH (08:29)
[2018-05-01] MEDS: LISINOPRIL 20 MG TABLET PO SCH (09:00)
[2018-05-01 10:20] VITALS: BP 101/69
[2018-05-01] MEDS: OMEPRAZOLE 20 MG CAPSULE PO SCH (10:21)
[2018-05-01] MEDS: GABAPENTIN 100 MG CAPSULE PO SCH ×4 (10:21→21:19)
[2018-05-01] MEDS: DOCUSATE SODIUM 100 MG CAPSULE PO SCH (10:22)
[2018-05-01] MEDS: CHOLECALCIFEROL (VIT D3) 1,000 UNITS TABLET PO SCH (10:22)
[2018-05-01] MEDS: NALTREXONE HCL 50 MG TABLET PO SCH (10:22)
[2018-05-01] MEDS: CloZAPine 100 MG TABLET PO SCH ×2 (10:24→21:19)
[2018-05-01 16:49] VITALS: BP 122/76
[2018-05-01] MEDS: ACETAMINOPHEN 325 MG TABLET PO PRN (16:49)
[2018-05-01 17:37] VITALS: BP 138/82
[2018-05-02 01:24] VITALS: BP 119/77
[2018-05-02 08:20] VITALS: BP 100/64
[2018-05-02] MEDS: CHOLECALCIFEROL (VIT D3) 1,000 UNITS TABLET PO SCH (08:29)
[2018-05-02] MEDS: LISINOPRIL 20 MG TABLET PO SCH (08:29)
[2018-05-02] MEDS: DOCUSATE SODIUM 100 MG CAPSULE PO SCH (08:29)
[2018-05-02] MEDS: NALTREXONE HCL 50 MG TABLET PO SCH (08:29)
[2018-05-02] MEDS: LEVOFLOXACIN 250 MG TABLET PO SCH (08:29)
[2018-05-02] MEDS: GABAPENTIN 100 MG CAPSULE PO SCH (08:29)
[2018-05-02] MEDS: OMEPRAZOLE 20 MG CAPSULE PO SCH (08:30)
[2018-05-02] MEDS: CloZAPine 100 MG TABLET PO SCH (08:30)
[2018-05-02] MEDS ORDERED: CLOZ100 PO ×2 (09:28)
[2018-05-02] MEDS ORDERED: NALT50TA PO (09:28)
[2018-05-02] MEDS ORDERED: LEVO250 PO (09:48)
[2018-05-02] MEDS ORDERED: LISI-662 PO (09:48)
== END 2018-05-02 12:30 | disposition home or self-care (01) | DRG 885 ==
LOC: EMS 17:23 → B2X 23:30
DX: F25.1 Schizoaffective disorder, depressive type (principal); J18.1 Lobar pneumonia, unspecified organism; R45.851 Suicidal ideations; F10.20 Alcohol dependence, uncomplicated; F12.10 Cannabis abuse, uncomplicated; F17.200 Nicotine dependence, unspecified, uncomplicated; F41.9 Anxiety disorder, unspecified; G40.909 Epilepsy, unspecified, not intractable, without status epilepticus; I10 Essential (primary) hypertension; K59.00 Constipation, unspecified; Z82.49 Family history of ischemic heart disease and other diseases of the circulatory system; Z91.5 Personal history of self-harm; Z56.0 Unemployment, unspecified
CPT/HCPCS: 80159; 83036; 83735; 84100; 84439; 84443; 85007; 87070; 87205; G0480